=== PATIENT | female | born 1995 | race Caucasian/White ===

== ENCOUNTER 2016-11-08 21:50 | Emergency (ER) | payer OTHER ==
--- NOTE | 2016-11-08 22:52 | ED ---
Kathy Cates Anna, scribed for Farhat Epstein MD on 11/08/16 at 2238 . Syncope/Near Syncope - HPI Summary HPI Summary: Patient is a 21 y/o female coming to [facility] presenting with intermittent lightheadedness that began today. 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 She experiences some nausea with the lightheadedness. Denies emesis. She has been sensitive to light over the past few days, today more than previously. She had a caffeine and amino acid supplement once this morning and once tonight at 1900. She reports having this many times before, but she has not had it in a while. She passed out one time before, when she was younger and nervous for a shot at her doctors office. - History Of Current Complaint Chief Complaint: EDDizziness Time Seen by Provider: 11/08/16 22:30 Hx Obtained From: Patient, Family/Clerical Stock Inspector - accompanied by friend Onset/Duration: Gradual Onset, Still Present - Allergies/Home Medications Allergies/Adverse Reactions: Allergies Allergy/AdvReac Type Severity Reaction Status Date / Time No Known Allergies Allergy Verified 11/08/16 21:55 PMH/Surg Hx/FS Hx/Imm Hx Previously Healthy: Yes Infectious Disease History: No Infectious Disease History: Denies: Traveled Outside the [place] in Last 30 Days - Family History Known Family History: Positive: Cardiac Disease - Hx in father's side of the family, Hypertension - Hx in father's side of the family, Other - Hx anemia in mother Negative: Diabetes - Social History Occupation: Student Lives: With Family Alcohol Use: Rare Substance Use Type: Reports: None Smoking Status (MU): Never Smoked Tobacco Review of Systems Positive: Photophobia Positive: Nausea Neurological: Other - lightheadedness All Other Systems Reviewed And Are Negative: Yes Physical Exam Triage Information Reviewed: Yes Vital Signs On Initial Exam: Initial Vitals Temp Pulse Resp BP Pulse Ox 97.3 F 84 13 131/77 100 11/08/16 21:51 11/08/16 21:51 11/08/16 21:51 11/08/16 21:51 11/08/16 21:51 Vital Signs Reviewed: Yes Appearance: Positive: No Pain Distress, Ill-Appearing Skin: Positive: Warm Head/Face: Positive: Normal Head/Face Inspection Eyes: Positive: KAYKAY ENT: Positive: Hearing grossly normal Neck: Positive: Supple Respiratory/Lung Sounds: Positive: Clear to Auscultation, Breath Sounds Present Cardiovascular: Positive: RRR Abdomen Description: Positive: Soft, Other: - mild diffuse tenderness. Negative : Distended, Guarding Bowel Sounds: Positive: Present, Hypoactive Musculoskeletal: Positive: Strength/ROM Intact Neurological: Positive: Alert, Oriented to Person Place, Time Psychiatric: Positive: Affect/Mood Appropriate - Maria Dolores Coma Scale Coma Scale Total: 15 Diagnostics - Vital Signs Vital Signs Temp Pulse Resp BP Pulse Ox 11/08/16 21:51 97.3 F 84 13 131/77 100 - Laboratory Result Diagrams: 11/08/16 22:46 11/08/16 22:46 Lab Statement: Any lab studies that have been ordered have been reviewed, and results considered in the medical decision making process. Re-Evaluation - Re-Evaluation First Eval Change: Improved Course/Dx Assessment/Plan: Patient is a 21 y/o [facility] with intermittent lightheadedness that began today. 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 She experiences some nausea with the lightheadedness. Denies emesis. She has been sensitive to light over the past few days, today more than previously. She had a caffeine and amino acid supplement once this morning and once tonight at 1900. She reports having this many times before, but she has not had it in a while. She passed out one time before, when she was younger and nervous for a shot at her doctors office. Labs are unremarkable. [place] screen was negative. Patient will be discharged home with follow up from her PCP. - Diagnoses Provider Diagnoses: Dizziness, Viral syndrome Discharge - Discharge Plan Condition: Guarded Disposition: HOME Patient Education Materials: Lightheadedness (ED), Dizziness (ED) Referrals: [facility] PHYSICIAN REFERRAL [Outside] Additional Instructions: Follow up with primary care provider within 48 hours. Return to the emergency department for any new or worsening symptoms. The documentation as recorded by the Kathy mahoney Anna accurately reflects the service I personally performed and the decisions made by me, Farhat Epstein MD.
[2016-11-08 23:03] LABS: Hematocrit 41 % (35-47); Hemoglobin 13.9 g/dl (12.0-16.0); Mean Corpuscular HGB Conc 34 g/dl (31-36); Mean Corpuscular Hemoglobin 30 pg (27-31); Mean Corpuscular Volume 87 fL (80-97); Mean Platelet Volume 8 um3 (7.4-10.4); Red Blood Count 4.73 10^6/ul (4.0-5.4); Red Cell Distribution Width 12 % (10.5-15); White Blood Count 8.5 10^3/ul (3.5-10.8)
[2016-11-08 23:11] LABS: Albumin 4.4 g/dL (3.2-5.2); BUN/Creatinine Ratio 20.4 (8-20); Calcium 9.7 mg/dL (8.6-10.3); EGFR African American 87.9 (>60); EGFR Non-African American 68.3 (>60); Potassium 3.4 mmol/L (3.5-5.0); Total Bilirubin 0.3 mg/dL (0.2-1.0); Total Protein 7.4 g/dL (6.4-8.9)
[2016-11-08 23:26] LABS: Mono Internal Control QC Line Present
[2016-11-08 23:27] LABS: Manual Entry Verification LOR0008
[2016-11-08 23:59] VITALS: BP 134/94
== END 2016-11-08 23:58 | disposition home or self-care (01) ==
LOC: ED 21:50
DX: H53.149 Visual discomfort, unspecified (principal); B34.9 Viral infection, unspecified; R42 Dizziness and giddiness
CPT/HCPCS: 36415; 80053; 84702; 85025; 86308; 99282